=== PATIENT | female | born 1975 | race Caucasian/White ===

== ENCOUNTER 2018-10-20 23:38 | Emergency (ER) | payer OTHER, SELFPAY ==
[2018-10-21 00:22] LABS: Absolute Lymphocytes (CBC) 2.7 K/uL (0.7-4.9); Absolute Monocytes 0.8 K/uL (0.1-1.3); Absolute Neutrophil 5.2 K/uL (1.8-8.0); Basophils % 0.7 % (0-1.3); Eosinophils % 0.7 % (0-4.4); Hematocrit 39.3 % (36.0-45.0); Lymphocytes % 30.8 % (15.3-44.8); MPV 8.3 fL (7.6-11.3); Monocytes % 8.7 % (3.3-12.3); RBC Red Blood Cell Count 4.42 M/uL (3.86-4.86)
[2018-10-21] MEDS ORDERED: ONDANSETRON 4 MG/2 ML VIAL ONE (00:38)
[2018-10-21] MEDS ORDERED: NA CHLORIDE 0.9% 1,000 ML ONE (00:38)
[2018-10-21] MEDS ORDERED: MORPHINE 4 MG/ML SYR ONE (00:38)
[2018-10-21 00:39] LABS: Urine Appearance CLEAR; Urine Bilirubin NEGATIVE (NEG); Urine Blood 2+ (NEG); Urine Color YELLOW; Urine Glucose NEGATIVE (NEG); Urine Microscopic Reflex ORDER UMIC; Urine Protein NEGATIVE (NEG); Urine Specific Gravity 1.015 (1.005-1.030); Urine pH 7.5 (5.0-7.0)
[2018-10-21 00:40] LABS: ALT/SGPT 24 U/L (12-78); AST/SGOT 10 U/L (15-37); Albumin 3.7 g/dL (3.4-5.0); Alkaline Phosphatase 96 U/L (45-117); BUN Blood Urea Nitrogen 11 mg/dL (7-18); Bicarbonate 28 mmol/L (21-32); Bilirubin Direct < 0.1 mg/dL (0-0.2); Bilirubin Total 0.3 mg/dL (0.2-1.0); Glucose Level 89 mg/dL (74-106); Lipase 77 U/L (73-393); Potassium 3.7 mmol/L (3.5-5.1); Protein, Total 7.5 g/dL (6.4-8.2); Sodium Level 141 mmol/L (136-145)
[2018-10-21 00:48] LABS: Urine Bacteria <20 /HPF (<20); Urine Culture Reflex Order NOT NEEDED
--- NOTE | 2018-10-21 03:05 | ER ---
Nurse's Notes [facility] Name: Leah Matta Age: 43 yrs Sex: Female : 1975 Arrival Date: 10/20/2018 Time: 23:40 Bed 14 Private MD: Diagnosis: Abdominal pain Presentation: 10/20 23:55 Presenting complaint: Patient states: I stood up fast at work the other day and since jb4 then I have been having severe lower right sided back pain that radiates under my arm and to my upper stomach. Transition of care: patient was not received from another setting of care. Onset of symptoms was October 20, 2018. Risk Assessment: Do you want to hurt yourself or someone else? Patient reports no desire to harm self or others. Initial Sepsis Screen: Does the patient meet any 2 criteria? No. Patient's initial sepsis screen is negative. Does the patient have a suspected source of infection? No. Patient's initial sepsis screen is negative. Care prior to arrival: None. 23:55 Method Of Arrival: Ambulatory [facility] 23:55 Acuity: TANVI 3 jb4 Triage Assessment: 10/21 00:02 General: Appears in no apparent distress. uncomfortable, Behavior is cooperative, cc3 anxious. Pain: Complains of pain in right flank, right abdomen. GI: Reports lower abdominal pain, upper abdominal pain, right side flank and abdominal pain. 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 - Social history:: Smoking status: Patient/guardian denies using tobacco, Patient/guardian denies using alcohol. - Ebola Screening: : No symptoms or risks identified at this time. Screenin/04 00:02 Abuse screen: Denies threats or abuse. Denies injuries from another. Nutritional cc3 screening: No deficits noted. Tuberculosis screening: No symptoms or risk factors identified. Fall Risk Ambulatory Aid- None/Bed Rest/Nurse Assist (0 pts). Gait- Normal/Bed Rest/Wheelchair (0 pts) Mental Status- Oriented to own ability (0 pts). Assessment: 00:02 GI: Abdomen is round non-distended. cc3 00:02 General: Appears in no apparent distress. uncomfortable, Behavior is cooperative, cc3 anxious. Pain: Complains of pain in right flank, right abdomen Pain currently is 10 out of 10 on a pain scale. Neuro: Level of Consciousness is awake, alert, obeys commands, Oriented to person, place, time, situation, Appropriate for age. Cardiovascular: Denies chest pain, Patient's skin is warm and dry. Respiratory: Airway is patent Respiratory effort is even, unlabored, Respiratory pattern is regular, symmetrical. : No signs and/or symptoms were reported regarding the genitourinary system. EENT: No signs and/or symptoms were reported regarding the EENT system. Derm: No signs and/or symptoms reported regarding the dermatologic system. Musculoskeletal: Circulation, motion, and sensation intact. Range of motion: intact in all extremities. 01:18 Reassessment: Patient appears in no apparent distress at this time. Patient and/or cc3 family updated on plan of care and expected duration. Pain level reassessed. Patient is alert, oriented x 3, equal unlabored respirations, skin warm/dry/pink. 02:20 Reassessment: Patient appears in no apparent distress at this time. Patient and/or cc3 family updated on plan of care and expected duration. Pain level reassessed. Patient is alert, oriented x 3, equal unlabored respirations, skin warm/dry/pink. Patient came back from CT scan department, awaiting result. Patient states feeling better. Patient states symptoms have improved. 03:30 Reassessment: Patient appears in no apparent distress at this time. Patient and/or cc3 family updated on plan of care and expected duration. Pain level reassessed. Patient is alert, oriented x 3, equal unlabored respirations, skin warm/dry/pink. Dr. Leavitt discharged the patient home with prescription given. IV cannula removed and patient left ER vitally stable and ambulatory. Patient states feeling better. Patient states symptoms have improved. Vital Signs: 10/20 23:58 BP 137 / 87; Pulse 79; Resp 18; Temp 98.5(O); Pulse Ox 100% on R/A; Weight 72.57 kg jb4 (R); Height 5 ft. 5 in. (165.10 cm); Pain 10/10; 0604 00:15 BP 127 / 75; Pulse 69; Resp 19 S; Temp 98.2(O); Pulse Ox 100% on R/A; cc3 01:18 BP 113 / 68; Pulse 55; Resp 17 S; Temp 98.3(O); Pulse Ox 98% on R/A; cc3 02:41 BP 120 / 82; Pulse 58; Resp 19 S; Temp 98.3(O); Pulse Ox 100% on R/A; cc3 03:15 BP 108 / 56; Pulse 59; Resp 18 S; Temp 98.3(O); Pulse Ox 98% on R/A; cc3 10/20 23:58 Body Mass Index 26.63 (72.57 kg, 165.10 cm) jb4 ED Course: 10/20 23:40 Patient arrived in ED. am2 23:50 Inserted saline lock: 22 gauge in left antecubital area, using aseptic technique. Blood cc3 collected. inserted by radiocommunications technician Kiah. 23:57 Triage completed. jb4 23:58 Arm band placed on right wrist. jb4 10/21 00:02 Daksha Anaya is Primary Nurse. cc3 00:02 Patient has correct armband on for positive identification. Placed in gown. Bed in low cc3 position. Call light in reach. Side rails up X 1. Pulse ox on. NIBP on. 00:07 Francois Leavitt MD is Attending Physician. pkl 01:28 Radiology exam delayed due to test not completed at this time. kw1 03:30 No provider procedures requiring assistance completed. IV discontinued, intact, cc3 bleeding controlled, No redness/swelling at site. Pressure dressing applied. Administered Medications: 00:25 Drug: NS 0.9% 1000 ml Route: IV; Rate: 125 ml/hr; Site: left antecubital; cc3 03:30 Follow up: Response: No adverse reaction; IV Status: Order to discontinue infusion; IV cc3 Intake: 375ml 00:25 Drug: morphine 4 mg Route: IVP; Site: left antecubital; cc3 00:40 Follow up: Response: No adverse reaction cc3 00:30 Drug: Zofran 4 mg Route: IVP; Site: left antecubital; cc3 01:00 Follow up: Response: No adverse reaction; Nausea is decreased cc3 Intake: 03:30 IV: 375ml; Total: 375ml. cc3 Outcome: 03:05 Discharge ordered by . milan 03:30 Discharged to home ambulatory. cc3 03:30 Condition: stable 03:30 Discharge instructions given to patient, Instructed on discharge instructions, follow up and referral plans. medication usage, Demonstrated understanding of instructions, follow-up care, medications, Prescriptions given X 1. 03:34 Patient left the ED. cc3 Signatures: Francois Leavitt MD MD pkl Bryson, James, RN RN jb4 Vernell Jane am2 Denise Ríos1 Daksha Anaya cc3 Corrections: (The following items were deleted from the chart) 00:59 00:02 GI: Abdomen is round non-distended, cc3 cc3 :08 00:58 General: Appears in no apparent distress. uncomfortable, Behavior is cooperative, cc3 anxious, cc3 : 00:58 Pain: Complains of pain in right flank, right abdomen Pain currently is 10 out of cc3 10 on a pain scale. cc3 : 00:58 Neuro: Level of Consciousness is awake, alert, obeys commands, Oriented to cc3 person, place, time, situation, Appropriate for age cc3 : 00:58 Cardiovascular: Denies chest pain, Patient's skin is warm and dry. cc3 cc3 :08 00:58 Respiratory: Airway is patent Respiratory effort is even, unlabored, Respiratory cc3 pattern is regular, symmetrical, cc3 00:58 : No signs and/or symptoms were reported regarding the genitourinary system. cc3cc3 : 00:58 EENT: No signs and/or symptoms were reported regarding the EENT system. cc3 cc3 00:58 Derm: No signs and/or symptoms reported regarding the dermatologic system. cc3 cc3 : 00:58 Musculoskeletal: Circulation, motion, and sensation intact. Range of motion: cc3 intact in all extremities, cc3 03:38 02:41 BP 120 / 82; Pulse 58bpm; Resp 19bpm; Spontaneous; Pulse Ox 100% RA; cc3 cc3 03:38 00:15 BP 127 / 75; Pulse 69bpm; Resp 19bpm; Spontaneous; Pulse Ox 100% RA; cc3 cc3 03:38 01:18 BP 113 / 68; Pulse 55bpm; Resp 17bpm; Spontaneous; Pulse Ox 98% RA; cc3 cc3
--- NOTE | 2018-10-21 03:05 | EDPHYS ---
Physician Documentation [facility] Name: Leah Matta Age: 43 yrs Sex: Female : 1975 Arrival Date: 10/20/2018 Time: 23:40 Bed 14 Private MD: ED Physician Francois Leavitt HPI: 10/21 00:13 This 43 yrs old Female presents to ER via Ambulatory with complaints of Flank pkl Pain - right side pain to abdomen, Nausea. 00:13 The patient complains of pain in the right flank. The pain radiates to the right lower pkl quadrant. Onset: The symptoms/episode began/occurred 2 day(s) ago. 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 - Social history:: Smoking status: Patient/guardian denies using tobacco, Patient/guardian denies using alcohol. - Ebola Screening: : No symptoms or risks identified at this time. ROS: 10/21 00:13 Eyes: Negative for injury, pain, redness, and discharge, ENT: Negative for injury, pkl pain, and discharge, Neck: Negative for injury, pain, and swelling, Cardiovascular: Negative for chest pain, palpitations, and edema, Respiratory: Negative for shortness of breath, cough, wheezing, and pleuritic chest pain, Abdomen/GI: Negative for abdominal pain, nausea, vomiting, diarrhea, and constipation. Back: Positive for flank pain, on the right. : Negative for urinary symptoms. MS/extremity: Negative for acute changes. Skin: Negative for rash. Neuro: Negative for altered mental status. Exam: 00:13 Head/Face: Normocephalic, atraumatic. Eyes: Pupils equal round and reactive to light, pkl extra-ocular motions intact. Lids and lashes normal. Conjunctiva and sclera are non-icteric and not injected. Cornea within normal limits. Periorbital areas with no swelling, redness, or edema. ENT: Nares patent. No nasal discharge, no septal abnormalities noted. Tympanic membranes are normal and external auditory canals are clear. Oropharynx with no redness, swelling, or masses, exudates, or evidence of obstruction, uvula midline. Mucous membranes moist. Neck: Trachea midline, no thyromegaly or masses palpated, and no cervical lymphadenopathy. Supple, full range of motion without nuchal rigidity, or vertebral point tenderness. No Meningismus. Chest/axilla: Normal chest wall appearance and motion. Nontender with no deformity. No lesions are appreciated. Cardiovascular: Regular rate and rhythm with a normal S1 and S2. No gallops, murmurs, or rubs. Normal PMI, no JVD. No pulse deficits. Respiratory: Lungs have equal breath sounds bilaterally, clear to auscultation and percussion. No rales, rhonchi or wheezes noted. No increased work of breathing, no retractions or nasal flaring. Abdomen/GI: Soft, non-tender, with normal bowel sounds. No distension or tympany. No guarding or rebound. No evidence of tenderness throughout. Back: No spinal tenderness. No costovertebral tenderness. Full range of motion. Skin: Warm, dry with normal turgor. Normal color with no rashes, no lesions, and no evidence of cellulitis. MS/ Extremity: Pulses equal, no cyanosis. Neurovascular intact. Full, normal range of motion. Neuro: Awake and alert, GCS 15, oriented to person, place, time, and situation. Cranial nerves II-XII grossly intact. Motor strength 5/5 in all extremities. Sensory grossly intact. Cerebellar exam normal. Normal gait. Vital Signs: 10/20 23:58 BP 137 / 87; Pulse 79; Resp 18; Temp 98.5(O); Pulse Ox 100% on R/A; Weight 72.57 kg jb4 (R); Height 5 ft. 5 in. (165.10 cm); Pain 10/10; 10/21 00:15 BP 127 / 75; Pulse 69; Resp 19 S; Temp 98.2(O); Pulse Ox 100% on R/A; cc3 01:18 BP 113 / 68; Pulse 55; Resp 17 S; Temp 98.3(O); Pulse Ox 98% on R/A; cc3 02:41 BP 120 / 82; Pulse 58; Resp 19 S; Temp 98.3(O); Pulse Ox 100% on R/A; cc3 03:15 BP 108 / 56; Pulse 59; Resp 18 S; Temp 98.3(O); Pulse Ox 98% on R/A; cc3 10/20 23:58 Body Mass Index 26.63 (72.57 kg, 165.10 cm) jb4 MDM: 00:07 Patient medically screened. pkl 03:04 Data reviewed: vital signs, nurses notes, lab test result(s), radiologic studies, CT pkl scan. 10/21 00:07 Order name: Basic Metabolic Panel 10/21 00:07 Order name: CBC with Diff 10/21 00:07 Order name: Creatinine for Radiology 10/21 00:07 Order name: Hepatic Function 10/21 00:07 Order name: Lipase 10/21 00:24 Order name: Urinalysis 10/21 00:26 Order name: CBC with Automated Diff; Complete Time: 00:37 EDMS 10/21 00:37 Order name: Creatinine (Radiology Only); Complete Time: 00:55 EDMS 10/21 00:41 Order name: Urinalysis; Complete Time: 00:54 EDMS 10/21 00:42 Order name: Basic Metabolic Panel; Complete Time: 00:54 EDMS 10/21 00:42 Order name: Liver (Hepatic) Function; Complete Time: 00:54 EDMS 10/21 00:42 Order name: Lipase; Complete Time: 00:55 EDMS 10/21 00:49 Order name: Urine Microscopic Only; Complete Time: 00:54 EDMS 10/21 01:53 Order name: Urine Dipstick--Ancillary (enter results) me 10/21 00:07 Order name: IV Saline Lock; Complete Time: 00:08 10/21 00:07 Order name: Labs collected and sent; Complete Time: 00:08 10/21 01:53 Order name: Urine --Ancillary (enter results) me Administered Medications: 00:25 Drug: NS 0.9% 1000 ml Route: IV; Rate: 125 ml/hr; Site: left antecubital; cc3 03:30 Follow up: Response: No adverse reaction; IV Status: Order to discontinue infusion; IV cc3 Intake: 375ml 00:25 Drug: morphine 4 mg Route: IVP; Site: left antecubital; cc3 00:40 Follow up: Response: No adverse reaction cc3 00:30 Drug: Zofran 4 mg Route: IVP; Site: left antecubital; cc3 01:00 Follow up: Response: No adverse reaction; Nausea is decreased cc3 Disposition: 10/21/18 03:05 Discharged to Home. Impression: Abdominal pain. - Condition is Stable. - Prescriptions for Ultram 50 mg Oral Tablet - take 1 tablet by ORAL route every 8 hours As needed; 15 tablet. - Medication Reconciliation Form, Thank You Letter, Antibiotic Education, Prescription Opioid Use form. - Follow up: Private Physician; When: 2 - 3 days; Reason: Re-evaluation by your physician. - Problem is new. - Symptoms have improved. Signatures: Dispatcher [employer] EDMS Francois Leavitt MD MD pkl Karen Crain, RN RN bb River Pat RN RN jb4 Daksha Anaya cc3 Corrections: (The following items were deleted from the chart) 03:34 03:05 10/21/2018 03:05 Discharged to Home. Impression: Abdominal pain. Condition is cc3 Stable. Forms are Medication Reconciliation Form, Thank You Letter, Antibiotic Education, Prescription Opioid Use. Follow up: Private Physician; When: 2 - 3 days; Reason: Re-evaluation by your physician. Problem is new. Symptoms have improved. pkl
[2018-10-21 05:35] LABS: Urine Blood 2+ (NEG); Urine Glucose NEGATIVE (NEG); Urine Protein NEGATIVE (NEG); Urine pH 7.5 (5.0-7.0)
--- NOTE | 2018-10-22 12:35 | RAD REPORT ---
EXAM DESCRIPTION: CT - Abdomen Pelvis W Contrast - 10/21/2018 4:10 am CLINICAL HISTORY: Abdominal pain COMPARISON: None. TECHNIQUE: CT ABDOMEN PELVIS WITH IV CONTRAST on 10/21/2018 1:02 AM CDT This exam was performed according to our departmental dose-optimization program, which includes autom ated exposure control, adjustment of the mA and/or kV according to patient size and/or use of iterati ve reconstruction technique. FINDINGS: There is a small right pleural effusion. Abdomen: The liver is normal in appearance. There is no biliary dilatation. Cholecystectomy was perfo rmed. The pancreas and spleen are normal in appearance. The adrenal glands and kidneys are unremarkab le. Abdominal aorta is normal in course and caliber without aneurysm. There is no free air. There is no r etroperitoneal adenopathy.There is a small fat-containing umbilical hernia. Pelvis: There is no bowel obstruction. Urinary bladder is unremarkable. There is no free fluid. Uteru s is normal in size. Appendix is normal. Skeleton: There are no acute osseous findings. No suspicious bony lesions. IMPRESSION: No definite acute inflammatory process. No renal or ureteral calculi. Trace right pleural effusion. Electronically signed by: Waldo Moe MD 10/21/2018 2:44 AM CDT Due to temporary technical issues with the PACS/Fluency reporting system, reports are being signed by the in house radiologist as a courtesy to ensure prompt reporting. The interpreting radiologist is f ully responsible for the content of the report.
== END 2018-10-21 03:34 | disposition home or self-care (01) ==
LOC: ER 23:38
DX: R10.31 Right lower quadrant pain (principal); Z85.3 Personal history of malignant neoplasm of breast
CPT/HCPCS: 36415; 74177; 80048; 80076; 81003; 81015; 81025; 83690; 85025; 96361; 96374; 96375; 99284; J2405; J7030; Q9967

== ENCOUNTER 2018-10-21 08:22 | Emergency (ER) | payer SELFPAY ==
[2018-10-21] MEDS ORDERED: DIAZEPAM 10 MG/2 ML INJ SYRINGE ONE (09:03)
[2018-10-21] MEDS ORDERED: NA CHLORIDE 0.9% 1,000 ML ONE (09:03)
[2018-10-21] MEDS ORDERED: FENTANYL CITR 100 MCG/2 ML ONE (09:03)
[2018-10-21 10:02] LABS: Urine Bacteria >50 /HPF (<20)
[2018-10-21 10:03] LABS: Urine Culture Reflex Order REFLEXED
[2018-10-21 10:03] LABS: Urine Specific Gravity 1.025 (1.005-1.030)
[2018-10-21 10:03] LABS: Urine Blood 3+ (NEG); Urine Glucose NEGATIVE (NEG); Urine Protein TRACE (NEG); Urine Specific Gravity 1.025 (1.005-1.030); Urine pH 5.5 (5.0-7.0)
[2018-10-21] MEDS ORDERED: PIPER/TAZO/NS 3.375gm 3.375 GM/100 ML BAG ONE (10:38)
--- NOTE | 2018-10-21 11:24 | RAD REPORT ---
EXAM DESCRIPTION: CT - Angio Aorta For Dissection - 10/21/2018 11:10 am CLINICAL HISTORY: Chest pain radiating to the back. Chest pain;Rib Pain - Right;Abdominal distention COMPARISON: Abdomen Pelvis W Contrast dated 10/21/2018 TECHNIQUE: CT angiography of the aorta was performed with MIPs. All CT scans are performed using dose optimization technique as appropriate and may include automated exposure control or mA/KV adjustment according to patient size. FINDINGS: A left aortic arch is present with normal branching pattern of the great vessels.No acute aortic finding is seen such as aneurysm, penetrating ulcer or dissection. The celiac axis, SMA, ADDIS and renal arteries are widely patent. No evidence of pulmonary embolism. Emphysematous changes are present throughout the lungs with ill-defined opacity in the posterior righ t lung base with trace right pleural effusion. Mild infiltrate in this location is possible. Postsurg ical changes are present right breast. The liver demonstrates no focal mass or biliary dilatation.Cholecystectomy clips.The spleen, pancreas , adrenal glands and kidneys are within normal limits for arterial phase imaging. No bowel obstruction, free fluid or abscess.No pathologic enlarged lymphadenopathy identified. No fracture or worrisome bone lesion seen. IMPRESSION: No acute aortic finding is demonstrated. Developing right base pneumonia/ infiltrate is suspected.
--- NOTE | 2018-10-21 11:28 | ER ---
Nurse's Notes [facility] Name: Leah Matta Age: 43 yrs Sex: Female : 1975 Arrival Date: 10/21/2018 Time: 08:25 Bed 18 Private MD: Diagnosis: Unspecified bacterial pneumonia;Urinary tract infection, site not specified;Constipation Presentation: 10/21 08:33 Presenting complaint: Patient states: i was here last night and was discharged with pain meds; now i cant bear the pain on my R flank area; reports nausea; denies fever and chills;. 08:33 Transition of care: patient was not received from another setting of care. Onset of hj symptoms was October 21, 2018. Risk Assessment: Do you want to hurt yourself or someone else? Patient reports no desire to harm self or others. Initial Sepsis Screen: Does the patient meet any 2 criteria? No. Patient's initial sepsis screen is negative. Does the patient have a suspected source of infection? No. Patient's initial sepsis screen is negative. Care prior to arrival: None. 08:33 Method Of Arrival: Ambulatory 08:33 Acuity: TANVI 3 Triage Assessment: 08:33 General: Appears uncomfortable, well groomed, Behavior is crying. Pain: Complains of tw2 pain in back and abdomen. Musculoskeletal: Range of motion: intact in all extremities. 08:33 EENT: No signs and/or symptoms were reported regarding the EENT system. Neuro: Level of Consciousness is awake, alert, obeys commands, Oriented to person, place, time, situation, Appropriate for age. Cardiovascular: Capillary refill < 3 seconds Patient's skin is warm and dry. Respiratory: Airway is patent Respiratory effort is even, unlabored, Respiratory pattern is regular, symmetrical. GI: Reports upper abdominal pain, nausea. : Reports pain in right flank(s). Derm: No signs and/or symptoms reported regarding the dermatologic system. 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 - Social history:: Smoking status: . - Ebola Screening: : Patient denies travel to an Ebola-affected area in the 21 days before illness onset. Screenin:32 Abuse screen: Denies threats or abuse. Nutritional screening: No deficits noted. tw2 Tuberculosis screening: No symptoms or risk factors identified. Fall Risk None identified. Assessment: 08:33 Reassessment: see triage assessment;. hj 09:13 Reassessment: wheeled to CT:. hj 09:26 Reassessment: backfromCT;. hj 09:30 Reassessment: assisted to the bathroom;. hj 10:30 Reassessment: Patient and/or family updated on plan of care and expected duration. Pain hj level reassessed. Patient is alert, oriented x 3, equal unlabored respirations, skin warm/dry/pink. resting comfortably;. 11:18 Reassessment: Patient and/or family updated on plan of care and expected duration. Pain hj level reassessed. Patient is alert, oriented x 3, equal unlabored respirations, skin warm/dry/pink. back from CT:. 12:02 Reassessment: Patient and/or family updated on plan of care and expected duration. Pain hj level reassessed. Patient is alert, oriented x 3, equal unlabored respirations, skin warm/dry/pink. D/C instructions given;. Vital Signs: 08:33 BP 153 / 100; Pulse 75; Resp 18; Temp 99.1(O); Pulse Ox 100% on R/A; Weight 72.57 kg; hj Height 5 ft. 5 in. (165.10 cm); Pain 10/10; 08:58 BP 106 / 57; Pulse 70; Resp 18; Pulse Ox 100% on 2 lpm NC; hj 09:05 BP 101 / 62; Pulse 62; Resp 18; Pulse Ox 100% on 2 lpm NC; hj 10:30 BP 105 / 60; Pulse 51; Resp 18; Pulse Ox 100% on 2 lpm NC; hj 11:18 BP 116 / 71; Pulse 76; Resp 18; Pulse Ox 100% on R/A; hj 12:02 BP 118 / 68; Pulse 75; Resp 18; Pulse Ox 100% on R/A; hj 08:33 Body Mass Index 26.62 (72.57 kg, 165.10 cm) ED Course: 08:25 Patient arrived in ED. mr 08:29 Libertad Taylor, CATHY [facility]. snw 08:29 Kalin Ca MD is Attending Physician. snw 08:30 Inserted saline lock: 20 gauge in left antecubital area, using aseptic technique. Blood hj collected. 08:32 Arm band placed on. tw2 08:34 Bed in low position. Adult w/ patient. Pulse ox on. NIBP on. tw2 08:35 Mayco Carlton, SHAYNA is Primary Nurse. hj 08:37 Triage completed. hj 09:28 Note: pt had CT Abd/Pel today at 1am. with iv contrast. Can do CTA at 11am per kw1 radiologist. . Radiology exam delayed due to lab results not completed at this time. 11:12 CT Aorta for Dissection In Process Unspecified. EDMS 12:02 No provider procedures requiring assistance completed. IV discontinued, intact, hj bleeding controlled, No redness/swelling at site. Pressure dressing applied. Administered Medications: 08:45 Drug: fentaNYL (PF) 50 mcg Route: IVP; Site: left antecubital; hj 09:31 Follow up: Response: No adverse reaction; Pain is decreased hj 08:45 Drug: NS 0.9% 1000 ml Route: IV; Rate: 1 bolus; Site: left antecubital; hj 10:00 Follow up: IV Status: Completed infusion; IV Intake: 1000ml hj 08:45 Drug: Valium 5 mg Route: IVP; Site: left antecubital; hj 09:30 Follow up: Response: Anxiety decreased hj 10:08 Drug: Zosyn 3.375 grams Route: IVPB; Infused Over: 60 mins; Site: left antecubital; hj 12:04 Follow up: IV Status: Completed infusion; IV Intake: 100ml hj 11:26 Drug: Dulcolax Suppository 10 mg Route: MD; hj 12:03 Follow up: Response: No adverse reaction hj 11:26 Drug: Bisacodyl 10 mg Route: PO; hj 12:04 Follow up: Response: No adverse reaction hj Intake: 10:00 IV: 1000ml; Total: 1000ml. hj 12:04 IV: 100ml; Total: 1100ml. hj Outcome: 11:27 Discharge ordered by . snw 12:03 Discharged to home ambulatory, with family. hj 12:03 Condition: stable 12:03 Discharge instructions given to patient, family, Instructed on discharge instructions, follow up and referral plans. medication usage, Demonstrated understanding of instructions, follow-up care, medications, Prescriptions given X 3. 12:10 Patient left the ED. Signatures: Dispatcher [employer] EDMS Libertad Taylor, JARONC [employer]AVE BLOCK SPLITTER-[employer] Geetha Dutta Mayco Carlton RN SHAYNA hj Consuelo Tejeda RN RN 2 Denise Ríos kw1 Corrections: (The following items were deleted from the chart) 09:05 08:33 BP 153 / 100; Pulse 90bpm; Resp 18bpm; Pulse Ox 100% RA; Temp 99.1F Oral; 72.57 hj kg; Height 5 ft. 5 in.; BMI: 26.6; Pain 02/26; hj
--- NOTE | 2018-10-21 11:29 | EDPHYS ---
Physician Documentation [facility] Name: Leah Matta Age: 43 yrs Sex: Female : 1975 Arrival Date: 10/21/2018 Time: 08:25 Bed 18 Private MD: ED Physician Kalin Ca HPI: 10/21 08:44 This 43 yrs old Female presents to ER via Ambulatory with complaints of Back snw Pain, Abdominal Pain. 08:44 The patient presents with pain that is acute, with no known mechanism of injury, and snw tenderness. The symptoms are located in the right mid back. Onset: The symptoms/episode began/occurred gradually, and became worse this morning. The pain radiates to the abdomen. Associated signs and symptoms: The patient has no apparent associated signs or symptoms. The problem was sustained from unknown cause. Modifying factors: The patient symptoms are alleviated by nothing. Severity of symptoms: At their worst the symptoms were moderate, severe, incapacitating. The patient has not experienced similar symptoms in the past. The patient has been recently seen by a physician: The patient has been recently seen at the [facility] Department, yesterday, for similar complaints the patient was told to return for a recheck. 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 - Social history:: Smoking status: . - Ebola Screening: : Patient denies travel to an Ebola-affected area in the 21 days before illness onset. ROS: 08:44 Constitutional: Negative for fever, chills, and weight loss, Eyes: Negative for injury, snw pain, redness, and discharge, ENT: Negative for injury, pain, and discharge, Neck: Negative for injury, pain, and swelling, Cardiovascular: Negative for chest pain, palpitations, and edema, Respiratory: Negative for shortness of breath, cough, wheezing, and pleuritic chest pain, Abdomen/GI: Negative for abdominal pain, nausea, vomiting, diarrhea, and constipation, : Negative for injury, bleeding, discharge, and swelling, MS/Extremity: Negative for injury and deformity, Skin: Negative for injury, rash, and discoloration, Neuro: Negative for headache, weakness, numbness, tingling, and seizure. 08:44 Back: Positive for flank pain, on the right. Exam: 08:42 Head/Face: Normocephalic, atraumatic. Eyes: Pupils equal round and reactive to light, snw extra-ocular motions intact. Lids and lashes normal. Conjunctiva and sclera are non-icteric and not injected. Cornea within normal limits. Periorbital areas with no swelling, redness, or edema. ENT: Nares patent. No nasal discharge, no septal abnormalities noted. Tympanic membranes are normal and external auditory canals are clear. Oropharynx with no redness, swelling, or masses, exudates, or evidence of obstruction, uvula midline. Mucous membranes moist. Neck: Trachea midline, no thyromegaly or masses palpated, and no cervical lymphadenopathy. Supple, full range of motion without nuchal rigidity, or vertebral point tenderness. No Meningismus. Chest/axilla: Normal chest wall appearance and motion. Nontender with no deformity. No lesions are appreciated. 08:42 Respiratory: Lungs have equal breath sounds bilaterally, clear to auscultation and percussion. No rales, rhonchi or wheezes noted. No increased work of breathing, no retractions or nasal flaring. Skin: Warm, dry with normal turgor. Normal color with no rashes, +vitiligo, no lesions, and no evidence of cellulitis. MS/ Extremity: Pulses equal, no cyanosis. Neurovascular intact. Full, normal range of motion. Neuro: Awake and alert, GCS 15, oriented to person, place, time, and situation. Cranial nerves II-XII grossly intact. Motor strength 5/5 in all extremities. Sensory grossly intact. Cerebellar exam normal. Normal gait. 08:42 Constitutional: The patient appears alert, anxious, in obvious pain, restless, uncomfortable. 08:42 Cardiovascular: Rate: tachycardic, Heart sounds: normal. 08:42 Back: pain, that is moderate, that is severe, of the right mid back, ROM is normal, normal spinal alignment noted, CVA tenderness, that is moderate, vertebral tenderness, is not appreciated. Vital Signs: 08:33 BP 153 / 100; Pulse 75; Resp 18; Temp 99.1(O); Pulse Ox 100% on R/A; Weight 72.57 kg; hj Height 5 ft. 5 in. (165.10 cm); Pain 10/10; 08:58 BP 106 / 57; Pulse 70; Resp 18; Pulse Ox 100% on 2 lpm NC; hj 09:05 BP 101 / 62; Pulse 62; Resp 18; Pulse Ox 100% on 2 lpm NC; hj 10:30 BP 105 / 60; Pulse 51; Resp 18; Pulse Ox 100% on 2 lpm NC; hj 11:18 BP 116 / 71; Pulse 76; Resp 18; Pulse Ox 100% on R/A; hj 12:02 BP 118 / 68; Pulse 75; Resp 18; Pulse Ox 100% on R/A; hj 08:33 Body Mass Index 26.62 (72.57 kg, 165.10 cm) MDM: 08:29 Patient medically screened. snw 11:29 Data reviewed: vital signs, nurses notes. Data interpreted: Pulse oximetry: on room air snw is 100 %. Interpretation: normal. Counseling: I had a detailed discussion with the patient and/or guardian regarding: the historical points, exam findings, and any diagnostic results supporting the discharge/admit diagnosis, lab results, radiology results, the need for outpatient follow up, to return to the emergency department if symptoms worsen or persist or if there are any questions or concerns that arise at home. Response to treatment: the patient's symptoms have markedly improved after treatment. Special discussion: Based on the patient's Hx, exam, and Dx evaluation, there is no indication for emergent surgery or inpatient Tx. It is understood by the patient/guardian that if the Sx's persist or worsen they need to return immediately for re-evaluation. Based on the history and exam findings, there is no indication for further emergent testing or inpatient evaluation. I discussed with the patient/guardian the need to see the primary care provider for further evaluation of the symptoms. 10/21 08:30 Order name: Urine Microscopic Only; Complete Time: 10:07 snw 10/21 09:41 Order name: Urine Dipstick--Ancillary (enter results); Complete Time: 10:07 bd 10/21 09:20 Order name: CT Aorta for Dissection; Complete Time: 11:25 snw 10/21 09:42 Order name: Urine --Ancillary (enter results); Complete Time: 10:07 bd 10/21 10:10 Order name: Urine Culture EDMS 10/21 08:30 Order name: Urine Test (obtain specimen); Complete Time: 09:58 snw 10/21 08:30 Order name: Urine Dipstick-Ancillary (obtain specimen); Complete Time: 09:58 snw Administered Medications: 08:45 Drug: fentaNYL (PF) 50 mcg Route: IVP; Site: left antecubital; hj 09:31 Follow up: Response: No adverse reaction; Pain is decreased hj 08:45 Drug: NS 0.9% 1000 ml Route: IV; Rate: 1 bolus; Site: left antecubital; hj 10:00 Follow up: IV Status: Completed infusion; IV Intake: 1000ml hj 08:45 Drug: Valium 5 mg Route: IVP; Site: left antecubital; hj 09:30 Follow up: Response: Anxiety decreased hj 10:08 Drug: Zosyn 3.375 grams Route: IVPB; Infused Over: 60 mins; Site: left antecubital; hj 12:04 Follow up: IV Status: Completed infusion; IV Intake: 100ml hj 11:26 Drug: Dulcolax Suppository 10 mg Route: MT; hj 12:03 Follow up: Response: No adverse reaction hj 11:26 Drug: Bisacodyl 10 mg Route: PO; hj 12:04 Follow up: Response: No adverse reaction hj Disposition: 13:29 Co-signature as Attending Physician, Kalin Ca MD I agree with the assessment and louise plan of care. Disposition: 10/21/18 11:27 Discharged to Home. Impression: Unspecified bacterial pneumonia, Urinary tract infection, site not specified, Constipation. - Condition is Stable. - Discharge Instructions: Constipation, Adult, High-Fiber Diet, Community-Acquired Pneumonia, Adult, Urinary Tract Infection, Adult, Rehydration, Adult. - Prescriptions for Augmentin 875- 125 mg Oral Tablet - take 1 tablet by ORAL route every 12 hours for 10 days; 20 tablet. Diclofenac Sodium 75 mg Oral Tablet Sustained Release - take 1 tablet by ORAL route 2 times per day; 30 tablet. promethazine 25 mg Oral Tablet - take 1 tablet by ORAL route every 6 hours As needed; 20 tablet. - Work release form, Medication Reconciliation Form, Thank You Letter, Antibiotic Education, Prescription Opioid Use form. - Follow up: Private Physician; When: 2 - 3 days; Reason: Recheck today's complaints, Continuance of care, Re-evaluation by your physician. Follow up: Emergency Department; When: As needed; Reason: Worsening of condition. Signatures: Dispatcher [employer] [facility] Kalin Ca MD MD cha Therrien, Shelly, SCREW MACHINE SET UP OPERATOR-C SCREW MACHINE SET UP OPERATOR-Csnw Mayco Carlton RN RN Consuelo Baugh RN RN tw2 Corrections: (The following items were deleted from the chart) 09:26 08:32 Stone Protocol+CT.RAD.BRZ ordered. [facility] 12:10 11:27 10/21/2018 11:27 Discharged to Home. Impression: Unspecified bacterial pneumonia; hj Urinary tract infection, site not specified; Constipation. Condition is Stable. Forms are Medication Reconciliation Form, Thank You Letter, Antibiotic Education, Prescription Opioid Use. Follow up: Private Physician; When: 2 - 3 days; Reason: Recheck today's complaints, Continuance of care, Re-evaluation by your physician. Follow up: Emergency Department; When: As needed; Reason: Worsening of condition. snw
[2018-10-21] MEDS ORDERED: BISACODYL E.C. 5 MG TAB PO ONE (11:44)
[2018-10-21] MEDS ORDERED: BISACODYL 10 MG RECTAL SUPP ONE (11:44)
== END 2018-10-21 12:10 | disposition home or self-care (01) ==
LOC: ER 08:22
DX: N39.0 Urinary tract infection, site not specified (principal); J15.9 Unspecified bacterial pneumonia; K59.00 Constipation, unspecified; Z85.3 Personal history of malignant neoplasm of breast; Z90.11 Acquired absence of right breast and nipple
CPT/HCPCS: 71275; 74175; 81003; 81015; 81025; 87086; 87088; 96361; 96365; 96366; 96375; 99284; J2543; J3010; J3360; J7030; Q9967

== ENCOUNTER 2020-12-17 12:09 | Emergency (ER) | payer SELFPAY ==
--- OUTSIDE RECORDS SUMMARY | 2020-12-17 12:12 | XMS REPORT | Continuity of Care Document ---
:1975 Author Organization [facility] t Address [address] [place] [place] [address] Care Team Providers Name Role Phone Visit, Nurse Attending Clinician Unavailable Cathy Coker Attending Clinician Problems This patient has no known problems. Allergies, Adverse Reactions, Alerts This patient has no known allergies or adverse reactions. Medications This patient has no known medications. Procedures This patient has no known procedures. Encounters Start End Encounter Admission Attending Care Care Encounter Source Date/Time Date/Time Type Type Clinicians Facility Department ID 2020-08-16 2020-08-16 Nurse Visit, DAISY [id number] 08:43:27 09:04:06 Visit Arie [employer]EL[employer] [id number] Nurse REGIONAL [id number] MATERNAL [id number] & CHILD [facility] 2020-08-15 2020-08-15 Telephone DAISY Barnard [id number] 00:00:00 00:00:00 Bashir Morgan [employer] [id number] REGIONAL [id number] MATERNAL [id number] & CHILD [facility] Results This patient has no known results.
[2020-12-17 13:09] LABS: Basophils % 1.4 % (0-1.3); Hematocrit 36.3 % (36.0-45.0); MPV 8.1 fL (7.6-11.3); RBC Red Blood Cell Count 4.14 M/uL (3.86-4.86)
[2020-12-17 13:14] LABS: Protime INR 1.01
[2020-12-17 13:28] LABS: Magnesium 2.2 mg/dL (1.8-2.4); Potassium 3.8 mmol/L (3.5-5.1)
--- NOTE | 2020-12-17 13:38 | RAD REPORT ---
EXAM DESCRIPTION: CT - Head Brain Wo Cont - 12/17/2020 1:33 pm CLINICAL HISTORY: NUMBNESS COMPARISON: No comparisons TECHNIQUE: All CT scans are performed using dose optimization technique as appropriate and may inclu de automated exposure control or mA/KV adjustment according to patient size. FINDINGS: No intracranial hemorrhage, hydrocephalus or extra-axial fluid collection.No areas of brai n edema or evidence of midline shift. The paranasal sinuses and mastoids are clear. The calvarium is intact. IMPRESSION: No acute intracranial abnormality.
--- NOTE | 2020-12-17 14:50 | EDPHYS ---
Physician Documentation [facility] Name: Leah Matta Age: 45 yrs Sex: Female : 1975 Arrival Date: 12/17/2020 Time: 12:11 Bed 4 Private MD: Low Johnson ED Physician Gerson Rivera HPI: 12/17 14:45 This 45 yrs old Female presents to ER via Ambulatory with complaints of Left jr8 side numbness, Facial numbness, Numbness Of Arm. 14:45 Onset: The symptoms/episode began/occurred acutely, today. Associated signs and jr8 symptoms: The patient has no apparent associated signs or symptoms. Modifying factors: The patient symptoms are alleviated by nothing, the patient symptoms are aggravated by nothing. The patient has not experienced similar symptoms in the past. The patient has not recently seen a physician. Patient stated while working started to feel numbness and tingling to the left side of the face including the forehead. Became anxious at that time and felt like it may have gone down left arm. Denies any other symptoms. Upon arrival to the emergency room patient stated that she had only feels it to the left side of the face at this time and again including the forehead.. Historical: - Allergies: 12:35 No Known Allergies; iw - Home Meds: 12:35 None [Active]; iw - PMHx: 12:35 ADD/ADHD; Asthma; breast cancer; iw - Immunization history:: Adult Immunizations unknown. - Social history:: Smoking status: . ROS: 14:45 Eyes: Negative for injury, pain, redness, and discharge, ENT: Negative for injury, jr8 pain, and discharge, Neck: Negative for injury, pain, and swelling, Cardiovascular: Negative for chest pain, palpitations, and edema, Respiratory: Negative for shortness of breath, cough, wheezing, and pleuritic chest pain, Abdomen/GI: Negative for abdominal pain, nausea, vomiting, diarrhea, and constipation, Back: Negative for injury and pain, MS/Extremity: Negative for injury and deformity, Skin: Negative for injury, rash, and discoloration. 14:45 Neuro: Positive for numbness, tingling, of the face and left arm. Exam: 14:45 Head/Face: Normocephalic, atraumatic. Eyes: Pupils equal round and reactive to light, jr8 extra-ocular motions intact. Lids and lashes normal. Conjunctiva and sclera are non-icteric and not injected. Cornea within normal limits. Periorbital areas with no swelling, redness, or edema. ENT: Nares patent. No nasal discharge, no septal abnormalities noted. Tympanic membranes are normal and external auditory canals are clear. Oropharynx with no redness, swelling, or masses, exudates, or evidence of obstruction, uvula midline. Mucous membranes moist. Neck: Trachea midline, no thyromegaly or masses palpated, and no cervical lymphadenopathy. Supple, full range of motion without nuchal rigidity, or vertebral point tenderness. No Meningismus. Cardiovascular: Regular rate and rhythm with a normal S1 and S2. No gallops, murmurs, or rubs. Normal PMI, no JVD. No pulse deficits. Respiratory: Lungs have equal breath sounds bilaterally, clear to auscultation and percussion. No rales, rhonchi or wheezes noted. No increased work of breathing, no retractions or nasal flaring. Abdomen/GI: Soft, non-tender, with normal bowel sounds. No distension or tympany. No guarding or rebound. No evidence of tenderness throughout. Back: No spinal tenderness. No costovertebral tenderness. Full range of motion. Skin: Warm, dry with normal turgor. Normal color with no rashes, no lesions, and no evidence of cellulitis. MS/ Extremity: Pulses equal, no cyanosis. Neurovascular intact. Full, normal range of motion. 14:45 Neuro: Orientation: to person, place, time \T\ situation. Mentation: is normal, Memory: is normal, immediate memory is intact, recent memory is intact, remote memory is intact, Cranial nerves: CN I not tested, CN II- XII are normal as tested, visual hudson are intact. extraocular movements are intact, Facial palsy and sensory deficits are absent. Nystagmus is absent. Speech is clear and appropriate. Tongue strength is normal, Cerebellar function: normal finger to nose testing, heel to wylie testing is normal, Motor: moves all fours, strength is 5/5 in all extremities, Sensation: numbness, that is mild, of the Left forehead and left cheek, Gait: is steady, seizure activity, is not displayed by the patient, Abnormal movements: there are no abnormal movements. Vital Signs: 12:46 BP 139 / 78; ph 13:04 Pulse 56; Resp 18; Temp 97.6; Pulse Ox 99% on R/A; ph 14:02 BP 118 / 75; Pulse 52; Resp 17; Pulse Ox 100% on R/A; mh5 15:00 BP 118 / 72; Pulse 54; Resp 18; Temp 97.8; Pulse Ox 99% on R/A; ph NIH Stroke Scale Scores: 14:45 NIHSS Score: 1 8 MDM: 12:42 Patient medically screened. jr8 14:45 Data reviewed: vital signs, nurses notes, lab test result(s), radiologic studies, CT jr8 scan. Data interpreted: Pulse oximetry: on room air is 100 %. Interpretation: normal. Counseling: I had a detailed discussion with the patient and/or guardian regarding: the historical points, exam findings, and any diagnostic results supporting the discharge/admit diagnosis, lab results, radiology results, the need for outpatient follow up, a neurologist, to return to the emergency department if symptoms worsen or persist or if there are any questions or concerns that arise at home. ED course: Patient stated that at this time she is completely asymptomatic. Discussed with patient that there is no evident sign of stroke on CT. Blood work was unremarkable. Discussed with her that normally a TIA/CVA does not have forehead involvement. Because we cannot tie the symptoms anything else such as Alfaro's palsy I would still recommend taking low-dose daily 81 mg aspirin and to still see neurology within the next week. Patient understands that if she were to worsen or have new symptoms to come back immediately for further evaluation.. 12/17 12:42 Order name: Basic Metabolic Panel [facility] 12/17 12:42 Order name: CBC with Diff; Complete Time: 13:39 [facility] 12/17 12:42 Order name: Magnesium; Complete Time: 13:39 [facility] 12/17 12:42 Order name: PT-INR; Complete Time: 13:39 [facility] 12/17 12:42 Order name: CT Head Brain wo Cont; Complete Time: 13:41 [facility] 12/17 12:43 Order name: Basic Metabolic Panel; Complete Time: 13:39 [facility] 12/17 12:42 Order name: EKG; Complete Time: 12:43 [facility] 12/17 12:42 Order name: Cardiac monitoring; Complete Time: 12:44 8 12/17 12:42 Order name: EKG - Nurse/Tech; Complete Time: 12:44 8 12/17 12:42 Order name: IV Saline Lock; Complete Time: 13:09 8 12/17 12:42 Order name: Labs collected and sent; Complete Time: 13:09 8 12/17 12:42 Order name: O2 Per Protocol; Complete Time: 12:50 8 12/17 12:42 Order name: O2 Sat Monitoring; Complete Time: 12:50 jr8 Administered Medications: No medications were administered Disposition: 15:44 Co-signature as Attending Physician, Gerson Rivera MD. rn Disposition Summary: 12/17/20 14:50 Discharge Ordered Location: Home jr8 Problem: new jr8 Symptoms: have improved jr8 Condition: Stable jr8 Diagnosis - Paresthesia of skin jr8 Followup: jr8 - With: Duran Willson MD - When: 2 - 3 days - Reason: Recheck today's complaints, Continuance of care, Re-evaluation by your physician Discharge Instructions: - Discharge Summary Sheet jr8 - Paresthesia jr8 Forms: - Medication Reconciliation Form jr8 - Thank You Letter jr8 - Antibiotic Education jr8 - Prescription Opioid Use jr8 NIH Stroke Scale - NIH Stroke Score Date: 12/17/2020 Time: 14:45 Total Score = 1 1a. Level of Consciousness (LOC) - 0(Alert) 1b. Level of Consciousness (LOC) (Month \T\ Age) - 0(Both) 1c. LOC Commands (Open \T\ Closes Eyes/Advertising Clerk) - 0(Both) 2. Best Gaze (Lateral Gaze Paresis) - 0(Normal) 3. Visual Field Loss - 0(No visual loss) 4. Facial Palsy - 0(Normal) 5a. Left Arm: Motor (10-second hold) - 0(No drift) 5b. Right Arm: Motor (10-second hold) - 0(No drift) 6a. Left Leg: Motor (5-second hold - always test supine) - 0(No drift) 6b. Right Leg: Motor (5-second hold - always test supine) - 0(No drift) 7. Limb Ataxia (finger/nose \T\ heel/wylie - test with eyes open) - 0(Absent) 8. Sensory Loss (pinprick arms/legs/face) - 1(Mild to moderate loss) 9. Best Language: Aphasia (description/naming/reading) - 0(No aphasia) 10. Dysarthria (speech clarity - read or repeat words) - 0(Normal) 11. Extinction and Inattention (visual/tactile/auditory/spatial/personal) - 0(No abnormality) Initials: ann-marie Signatures: Dispatcher [employer] Olga Samaniego RN RN Gerson Rivera MD MD rn Roszak, Josh, PA PA jr8 Hafsa Pyle RN RN ph
--- NOTE | 2020-12-17 14:50 | ER ---
Nurse's Notes [facility] Name: Leah Matta Age: 45 yrs Sex: Female : 1975 Arrival Date: 12/17/2020 Time: 12:11 Bed 4 Private MD: Low Johnson Diagnosis: Paresthesia of skin Presentation: 12/17 12:30 Chief complaint: Patient states: pt was at work and all of a sudden she felt numbness iw and tingling to left side of face, states she still feels tingling in her face, she also felt tingling and decreased sensation in left arm , starred about 30 minutes ago. 12:30 Acuity: TANVI 2 iw 12:37 Coronavirus screen: Client denies travel out of the [place] in the last 14 days. At this ph time, the client does not indicate any symptoms associated with coronavirus-19. Ebola Screen: No symptoms or risks identified at this time. Risk Assessment: Do you want to hurt yourself or someone else? Patient reports no desire to harm self or others. Onset of symptoms was December 17, 2020. 12:51 Initial Sepsis Screen: Does the patient meet any 2 criteria? No. Patient's initial ph sepsis screen is negative. Does the patient have a suspected source of infection? No. Patient's initial sepsis screen is negative. 12:51 Method Of Arrival: Ambulatory ph Historical: - Allergies: 12:35 No Known Allergies; iw - Home Meds: 12:35 None [Active]; iw - PMHx: 12:35 ADD/ADHD; Asthma; breast cancer; iw - Immunization history:: Adult Immunizations unknown. - Social history:: Smoking status: . Screenin:37 Abuse screen: Denies threats or abuse. Denies injuries from another. Nutritional ph screening: No deficits noted. Tuberculosis screening: No symptoms or risk factors identified. Fall Risk None identified. Assessment: 12:36 Reassessment: BHAVANA Hatfield at bedside to assess pt. ph 13:03 General: Appears in no apparent distress. comfortable, well groomed, Behavior is calm, ph cooperative, appropriate for age, Reports " I've been under a lot of stress lately." Denies fever, feeling ill. Pain: Denies pain. 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 Cardiovascular: Denies chest pain, shortness of breath, Capillary refill < 3 seconds in bilateral fingers Patient's skin is warm and dry. Respiratory: Airway is patent Respiratory effort is even, unlabored, Respiratory pattern is regular, symmetrical. GI: No signs and/or symptoms were reported involving the gastrointestinal system. Derm: Skin is intact, is healthy with good turgor, Skin is pink, warm \\T\\ dry. Musculoskeletal: Circulation, motion, and sensation intact. Range of motion: intact in all extremities. 14:30 Reassessment: Patient appears in no apparent distress at this time. Patient and/or ph family updated on plan of care and expected duration. Pain level reassessed. Patient is alert, oriented x 3, equal unlabored respirations, skin warm/dry/pink. Vital Signs: 12:46 BP 139 / 78; ph 13:04 Pulse 56; Resp 18; Temp 97.6; Pulse Ox 99% on R/A; ph 14:02 BP 118 / 75; Pulse 52; Resp 17; Pulse Ox 100% on R/A; mh5 15:00 BP 118 / 72; Pulse 54; Resp 18; Temp 97.8; Pulse Ox 99% on R/A; ph NIH Stroke Scale Scores: 14:45 NIHSS Score: 1 [facility] ED Course: 12:11 Patient arrived in ED. mr 12:12 Low Johnson MD is Private Physician. mr 12:33 Triage completed. iw 12:36 Hafsa Pyle, RN is Primary Nurse. ph 12:36 Arm band placed on. iw 12:37 Patient has correct armband on for positive identification. Placed in gown. Bed in low ph position. Call light in reach. Side rails up X 1. telemetry monitor on. Pulse ox on. NIBP on. Door closed. Noise minimized. 12:42 Roman Martinez [facility]. jr8 12:42 Gerson Rivera MD is Attending Physician. [facility] 12:44 Basic Metabolic Panel Sent. [facility] 12:55 EKG done, by ED staff, reviewed by Roman BATEMAN. [facility] 13:00 Initial lab(s) drawn, by me, sent to lab. Inserted saline lock: 20 gauge in left ph antecubital area, using aseptic technique. Blood collected. 13:33 CT Head Brain wo Cont In Process Unspecified. EDMS 14:50 Duran Willson MD is Referral Physician. jr8 15:38 No provider procedures requiring assistance completed. IV discontinued, intact, sv bleeding controlled, No redness/swelling at site. Pressure dressing applied. Administered Medications: No medications were administered Outcome: 14:50 Discharge ordered by . jr8 15:38 Discharged to home ambulatory, with family. sv 15:38 Condition: stable 15:38 Discharge instructions given to patient, Instructed on discharge instructions, follow up and referral plans. Demonstrated understanding of instructions, follow-up care. 15:38 Patient left the ED. sv NIH Stroke Scale - NIH Stroke Score Date: 12/17/2020 Time: 14:45 Total Score = 1 1a. Level of Consciousness (LOC) - 0(Alert) 1b. Level of Consciousness (LOC) (Month \\T\\ Age) - 0(Both) 1c. LOC Commands (Open \\T\\ Closes Eyes/Direct Customer Service Representative) - 0(Both) 2. Best Gaze (Lateral Gaze Paresis) - 0(Normal) 3. Visual Field Loss - 0(No visual loss) 4. Facial Palsy - 0(Normal) 5a. Left Arm: Motor (10-second hold) - 0(No drift) 5b. Right Arm: Motor (10-second hold) - 0(No drift) 6a. Left Leg: Motor (5-second hold - always test supine) - 0(No drift) 6b. Right Leg: Motor (5-second hold - always test supine) - 0(No drift) 7. Limb Ataxia (finger/nose \\T\\ heel/wylie - test with eyes open) - 0(Absent) 8. Sensory Loss (pinprick arms/legs/face) - 1(Mild to moderate loss) 9. Best Language: Aphasia (description/naming/reading) - 0(No aphasia) 10. Dysarthria (speech clarity - read or repeat words) - 0(Normal) 11. Extinction and Inattention (visual/tactile/auditory/spatial/personal) - 0(No abnormality) Initials: jr8 Signatures: Dispatcher [employer] Prudence Leon, SHAYNA CORRAL Tra, Geetha mr Olga Lopez RN RN iw Roszak, Josh, PA PA [facility] Hafsa Pyle RN RN [place], [place] [id number]
[2020-12-17 16:00] VITALS: TEMP 97.6
[2020-12-17 16:02] VITALS: BP 118/75; O2SAT 100
== END 2020-12-17 15:38 | disposition home or self-care (01) ==
LOC: ER 12:09
DX: R20.2 Paresthesia of skin (principal); Z85.3 Personal history of malignant neoplasm of breast
CPT/HCPCS: 36415; 70450; 80048; 83735; 85025; 85610; 93005; 99284

== ENCOUNTER 2021-03-15 13:09 | Emergency (ER) | payer SELFPAY ==
[2021-03-15 13:40] LABS: Urine Blood 2+ (Negative); Urine Glucose Negative (Negative); Urine Protein Negative (Negative); Urine Specific Gravity 1.025 (1.005-1.030)
[2021-03-15 14:59] LABS: Basophils % 1.2 % (0-1.3); Hematocrit 37.2 % (36.0-45.0); Lymphocytes % 35.4 % (15.3-44.8); MPV 8.2 fL (7.6-11.3); RBC Red Blood Cell Count 4.17 M/uL (3.86-4.86)
[2021-03-15] MEDS ORDERED: NA CHLORIDE 0.9% 1,000 ML ONE (15:01)
[2021-03-15 15:29] LABS: Urine Bacteria 20-50 /HPF (<20); Urine RBC <5 /HPF (NONE SEEN)
[2021-03-15 15:33] LABS: ALT/SGPT 105 U/L (12-78); AST/SGOT 22 U/L (15-37); Albumin 3.4 g/dL (3.4-5.0); Alkaline Phosphatase 87 U/L (45-117); BUN Blood Urea Nitrogen 8 mg/dL (7-18); Bicarbonate 28 mmol/L (21-32); Bilirubin Direct 0.1 mg/dL (0-0.2); Bilirubin Total 0.5 mg/dL (0.2-1.0); Glucose Level 96 mg/dL (74-106); Lipase 33 U/L (73-393); Potassium 3.7 mmol/L (3.5-5.1); Sodium Level 141 mmol/L (136-145)
--- NOTE | 2021-03-15 16:11 | RAD REPORT ---
EXAM DESCRIPTION: CTAbdomen Pelvis W Contrast - 03/15/2021 3:49 pm CLINICAL HISTORY: Abdominal pain. abdominal pain COMPARISON: Abdomen Pelvis W Contrast dated 10/21/2018; 3D DIAG PIPER BILAT W/CAD dated 12/02/2019; Fol low Up Breast Axilla Comp dated 12/02/2019; DIAG MAMMO UNI W CAD dated 06/20/2017; DIAG MAMMO UNI W CAD dated 02/25/2018 TECHNIQUE: Biphasic CT imaging of the abdomen and pelvis was performed with 100 ml non-ionic IV cont rast. All CT scans are performed using dose optimization technique as appropriate and may include automated exposure control or mA/KV adjustment according to patient size. FINDINGS: The lung bases are clear.Cholecystectomy clips. The liver, spleen, pancreas, adrenal glands and kidneys are within normal limits. No bowel obstruction, free air, free fluid or abscess. The appendix is not identified as a discrete structure, however, no secondary findings of appendicitis are identified. No evidence of significan t lymphadenopathy. No suspicious bony findings. IMPRESSION: No acute intra-abdominal or pelvic finding.
--- NOTE | 2021-03-15 16:22 | EDPHYS ---
Physician Documentation [facility] Name: Leah Matta Age: 45 yrs Sex: Female : 1975 Arrival Date: 03/15/2021 Time: 13:13 Bed 10 Private MD: ED Physician Gerson Rivera HPI: 03/15 16:20 This 45 yrs old Female presents to ER via Ambulatory with complaints of kb Abdominal Pain. 16:20 The patient presents with abdominal pain. Onset: The symptoms/episode began/occurred 3 kb day(s) ago. The symptoms do not radiate. Associated signs and symptoms: Pertinent positives: constipation. The symptoms are described as constant. Modifying factors: The symptoms are alleviated by nothing, the symptoms are aggravated by nothing. Severity of pain: At its worst the pain was moderate in the emergency department the pain is unchanged. The patient has not experienced similar symptoms in the past. The patient has not recently seen a physician. Pt states she woke up with pain and bloating to abd. States she was also unable to have a BM. Reports she walked and drank a lot of water. Was able to have a BM last night and is getting better but wanted to get checked out. States she was out of town until last night so she wasn't able to come in until now. 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 - Social history:: Smoking status: Patient denies any tobacco usage or history of. Patient/guardian denies using alcohol. ROS: 16:19 Constitutional: Negative for fever, chills, and weight loss. kb 16:19 Abdomen/GI: Positive for abdominal pain. 16:19 All other systems are negative. Exam: 16:19 Constitutional: This is a well developed, well nourished patient who is awake, alert, kb and in no acute distress. Head/Face: Normocephalic, atraumatic. ENT: Moist Mucous membranes Cardiovascular: Regular rate and rhythm with a normal S1 and S2. No gallops, murmurs, or rubs. No pulse deficits. Respiratory: Respirations even and unlabored. No increased work of breathing, no retractions or nasal flaring. Abdomen/GI: Soft, non-tender. No distention Skin: Warm, dry with normal turgor. Normal color. MS/ Extremity: Pulses equal, no cyanosis. Neurovascular intact. Full, normal range of motion. Neuro: Awake and alert, GCS 15, oriented to person, place, time, and situation. Moves all extremities. Normal gait. Psych: Awake, alert, with orientation to person, place and time. Behavior, mood, and affect are within normal limits. Vital Signs: 13:16 BP 145 / 80; Pulse 75; Resp 18; Temp 98.2(O); Pulse Ox 95% on R/A; Weight 83.91 kg; ld1 Height 5 ft. 5 in. (165.10 cm); Pain 7/10; 15:03 BP 135 / 77; Pulse 79; Resp 18; Pulse Ox 96% on R/A; ld1 16:31 BP 128 / 72; Pulse 80; Resp 18; Pulse Ox 97% on R/A; ld1 13:16 Body Mass Index 30.79 (83.91 kg, 165.10 cm) ld1 MDM: 14:08 Patient medically screened. kb 16:19 Data reviewed: vital signs, nurses notes. Data interpreted: Pulse oximetry: on room air kb is 96 %. Interpretation: normal. Counseling: I had a detailed discussion with the patient and/or guardian regarding: the historical points, exam findings, and any diagnostic results supporting the discharge/admit diagnosis, lab results, radiology results, the need for outpatient follow up, a family practitioner, to return to the emergency department if symptoms worsen or persist or if there are any questions or concerns that arise at home. 03/15 13:40 Order name: Urine --Ancillary (enter results) vg1 03/15 13:41 Order name: Urine Dipstick-Ancillary; Complete Time: 14:08 EDMS 03/15 14:17 Order name: CT Abd/Pelvis - IV Contrast Only kb 03/15 15:09 Order name: CBC with Automated Diff; Complete Time: 15:11 EDMS 03/15 15:29 Order name: Urine Microscopic Only; Complete Time: 15:39 EDMS 03/15 15:34 Order name: Basic Metabolic Panel; Complete Time: 15:39 EDMS 03/15 15:34 Order name: Liver (Hepatic) Function; Complete Time: 15:39 EDMS 03/15 15:34 Order name: Lipase; Complete Time: 15:39 EDMS 03/15 16:11 Order name: CT; Complete Time: 16:13 EDMS 03/15 14:08 Order name: IV Saline Lock; Complete Time: 14:47 kb 03/15 14:08 Order name: Labs collected and sent; Complete Time: 14:47 kb Administered Medications: 14:47 Drug: NS 0.9% 1000 ml Route: IV; Rate: 1000 ml; Site: left antecubital; ld1 Disposition: 03/16 08:28 Co-signature as Attending Physician, Gerson Rivera MD I agree with the assessment and rn plan of care. Attestation: The patient's history, exam findings, diagnostics, and a summary of any interventions or procedures was reviewed in detail with Violet MORGAN. Disposition Summary: 03/15/21 16:22 Discharge Ordered Location: Home kb Condition: Stable kb Diagnosis - Upper abdominal pain, unspecified kb Followup: kb - With: Emergency Department - When: As needed - Reason: Worsening of condition Followup: kb - With: Private Physician - When: 2 - 3 days - Reason: Recheck today's complaints, Continuance of care, Re-evaluation by your physician Discharge Instructions: - Discharge Summary Sheet kb - Abdominal Pain, Adult, [id number] kb Forms: - Medication Reconciliation Form kb - Thank You Letter kb - Antibiotic Education kb - Work release form kb - Prescription Opioid Use kb Signatures: Dispatcher [employer] EDViolet Mccain FNP-C FNP-Gerson Velez MD MD rn Dibbern, Lauren, RN RN ld1
--- NOTE | 2021-03-15 16:22 | ER ---
Nurse's Notes [facility] Name: Leah Matta Age: 45 yrs Sex: Female : 1975 Arrival Date: 03/15/2021 Time: 13:13 Bed 10 Private MD: Diagnosis: Upper abdominal pain, unspecified Presentation: 03/15 13:16 Chief complaint: Patient states: " I woke up Saturday morning at 0500 with abd pain ld1 radiating to the back right side." Pt reports constipation, \\T\\ can't eat. Coronavirus screen: At this time, the client does not indicate any symptoms associated with coronavirus-19. Ebola Screen: No symptoms or risks identified at this time. Initial Sepsis Screen: Does the patient meet any 2 criteria? No. Patient's initial sepsis screen is negative. Does the patient have a suspected source of infection? No. Patient's initial sepsis screen is negative. Risk Assessment: Do you want to hurt yourself or someone else? Patient reports no desire to harm self or others. Onset of symptoms was March 13, 2021. 13:16 Method Of Arrival: Ambulatory ld1 13:16 Acuity: TANVI 3 ld1 Triage Assessment: 13:18 General: Appears in no apparent distress. uncomfortable, Behavior is calm, cooperative, ld1 appropriate for age. Pain: Complains of pain in abdomen Pain radiates to right subscapular area Pain currently is 7 out of 10 on a pain scale. Quality of pain is described as heavy, pressure, Pain began 2-3 days ago. Is intermittent. GI: Abdomen is Reports bloating, indigestion, nausea, Last bowel movement was yesterday, reports blood in stool. 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 - Social history:: Smoking status: Patient denies any tobacco usage or history of. Patient/guardian denies using alcohol. Screenin:04 Abuse screen: Denies threats or abuse. Nutritional screening: No deficits noted. tw2 Tuberculosis screening: No symptoms or risk factors identified. Fall Risk None identified. Assessment: 14:32 Reassessment: See triage assessment. ld1 15:03 Reassessment: Patient appears in no apparent distress at this time. Patient and/or ld1 family updated on plan of care and expected duration. Pain level reassessed. Patient is alert, oriented x 3, equal unlabored respirations, skin warm/dry/pink. Laying in bed waiting on results. Denies concerns at this time. 16:31 GI: Bowel sounds present X 4 quads. Abd is soft and non tender X 4 quads. ld1 Vital Signs: 13:16 BP 145 / 80; Pulse 75; Resp 18; Temp 98.2(O); Pulse Ox 95% on R/A; Weight 83.91 kg; ld1 Height 5 ft. 5 in. (165.10 cm); Pain 7/10; 15:03 BP 135 / 77; Pulse 79; Resp 18; Pulse Ox 96% on R/A; ld1 16:31 BP 128 / 72; Pulse 80; Resp 18; Pulse Ox 97% on R/A; ld1 13:16 Body Mass Index 30.79 (83.91 kg, 165.10 cm) ld1 ED Course: 13:13 Patient arrived in ED. ds1 13:18 Triage completed. ld1 13:18 Arm band placed on right wrist. ld1 14:02 Bed in low position. Call light in reach. tw2 14:08 Violet Domínguez FNP-C [facility] kb 14:08 Gerson Rivera MD is Attending Physician. kb 14:32 Monica Corral, SHAYNA is Primary Nurse. ld1 14:32 No provider procedures requiring assistance completed. ld1 16:31 IV discontinued, intact, bleeding controlled, No redness/swelling at site. ld1 Administered Medications: 14:47 Drug: NS 0.9% 1000 ml Route: IV; Rate: 1000 ml; Site: left antecubital; ld1 Outcome: 16:22 Discharge ordered by . kb 16:31 Discharged to home ambulatory. ld1 16:31 Condition: stable 16:31 Discharge instructions given to patient, Instructed on discharge instructions, follow up and referral plans. Demonstrated understanding of instructions, follow-up care. 16:32 Patient left the ED. ld1 Addendum: 03/19/2021 14:41 Addendum: Culture Results: Positive urine culture. Phone call Attempt #1 Spoke with s s patient over the phone who states that she does not want the antibiotic called in at this time and has follow up appointment scheduled for this week. Signatures: Violet Domínguez FNP-Adenike SAUCEDO-Corine Campos ds1 Talita Oconnell, RN RN ss Consuelo Tejeda RN RN tw2 Monica Corral RN RN ld1
[2021-03-15 16:36] VITALS: TEMP 98.2
[2021-03-15 16:38] VITALS: BP 128/72; O2SAT 97
[2021-03-15 21:17] LABS: Urine Specific Gravity/Preg 1.025 (1.005-1.030)
== END 2021-03-15 16:32 | disposition home or self-care (01) ==
LOC: ER 13:09
DX: R10.10 Upper abdominal pain, unspecified (principal); Z85.3 Personal history of malignant neoplasm of breast
CPT/HCPCS: 36415; 74177; 80048; 80076; 81003; 81015; 81025; 83690; 85025; 87077; 87086; 87088; 87186; 99283; J7030; Q9967